=== PATIENT | female | born 1940 | race Caucasian/White ===

== ENCOUNTER → 2016-04-25 | Outpatient (CLI) | payer MEDICARE, OTHER ==
[~2016-04-25] MED LIST: ACETAMINOPHEN325 MG PO; ALLERGY25 MG PO; ALPRAZOLAM0.5 MG PO; AMBIEN10 MG PO; ANUSOL-HC25 MG/SUPP RC; ASPIRIN81 MG PO; BENADRYL25 M1 PO; BENTYL20 M1 PO; CEFTIN PO; DETROL LA2 MG PO; DETROL2 M1 PO; DICYCLOMINE HCL20 MG PO; HYDROCODON-ACE1 EAC5 PO; HYDROCODONE-A1 UDTA2 PO; HYDROCODONE-APA1 T55 PO; LIPITOR PO; MACROBID100 M1 PO; MAGIC MOUTH WASH PO; MAGNESIUM400 MG PO; MELATONIN3 M4 PO; MUCINEX D ER T1 EAC1 PO; NORCO 10-325 TA1 TAB PO; NYSTATIN5 ML PO; OMEPRAZOLE20 M1 PO; OMEPRAZOLE20 M2 PO; PERIDEX480 ML PO; PHENERGAN25 MG PO; PRILOSEC20 MG PO; QUESTRAN PACK4 G/PK1 PO; REGLAN10 MG PO; SERTRALINE HCL100 M1 PO; SYNTHROID0.05 MG PO; SYNTHROID25 MCG PO; SYNTHROID75 MCG PO; SYNTHROID88 MCG PO; XANAX0.5 M1 PO; XANAX1 MG PO; ZOFRAN ODT4 MG PO; ZOLOFT100 MG PO
--- NOTE | ~2016-04-25 | CR242 ---
[facility] A Service of [facility] & [facility] RADIOLOGY TEXT RESULTS PATIENT: THADDEUS VALENCIA LOCATION: [facility] : 44 UNIT #: [id number] AGE: [address]: Do Morillo APRN SEX: F ORDER DR: [id number] [facility] [address] [place], [place] [address] [id number] O MR#: [id number] Acc #: [id number] NAME: THADDEUS VALENCIA : 1940 SEX: F STUDY DATE/TIME: 04/25/2016 15:55 UNIT: [facility] ROOM: STUDY DESCRIPTION: CR Thoracic Spine 2 Views Attending Physician: Do Morillo Aprn Referring Physician: Do Morillo Aprn Ordering Physician: Do Morillo Aprn Primary Care Physician: Georgia Rome M.D. MEDICAL IMAGING REPORT This report is preliminary unless electronic signature is present EXAM Thoracic spine 3 views HISTORY Mid-back pain after fall 3-4 weeks ago. FINDINGS AP, lateral, and cone lateral views of the thoracic spine demonstrates diffuse osteopenia. Compression fractures are noted at T8 and T9 with loss of the anterior vertebral body height with approximately 40% loss of the anterior intervertebral body height at T8 and about 40% loss of the intervertebral body height at T9. There is sclerosis and degenerative disc changes at T8-T9. No lytic or blastic lesions. Mild levocurvature thoracic spine. IMPRESSION New anterior compression fractures T8 and T9 which are new when compared to the patient's chest radiograph of 12/01/2014. Patient does demonstrate degenerative disc changes at the T8-T9 level and this may imply that this is a subacute process though could imply accelerated degeneration at the disc margin. This appears superimposed on background osteopenia, probably represents osteoporotic compression fractures. Dictated by... Jericho Ceja M.D. THIS IS AN ELECTRONICALLY VERIFIED REPORT Jericho Ceja M.D. at 04/26/2016 8:42 PM PPAI/ron TD: 04/26/2016 09:13 JOB #: [id number] [facility] A Service of [facility] & [facility] RADIOLOGY TEXT RESULTS PATIENT: THADDEUS VALENCIA LOCATION: [facility] #: [id number] : 44 UNIT #: [id number] AGE: [address]: Do Morillo APRN SEX: F ORDER DR: MEDICAL IMAGING REPORT COPY
== END | disposition home or self-care (01) ==
LOC: CRAD 15:37
DX: M54.6 Pain in thoracic spine (principal); S22.069A Unspecified fracture of T7-T8 vertebra, initial encounter for closed fracture; S22.079A Unspecified fracture of T9-T10 vertebra, initial encounter for closed fracture; M51.34 Other intervertebral disc degeneration, thoracic region
CPT/HCPCS: 72070